=== PATIENT | female | born 1970 | race Caucasian/White ===

== ENCOUNTER 2023-05-30 05:26 | Inpatient (IN) | payer OTHER ==
[2023-05-30] MEDS ORDERED: LIDOCAINE 1%/EPI 1:100000 (20 ML MULTI DOSE VIAL) IJ ONE (06:09)
[2023-05-30] MEDS ORDERED: LIDOCAINE 1%/EPI 1:100000 (50 ML MULTI DOSE VIAL) ONE (06:11)
[2023-05-30] MEDS ORDERED: cefTRIAXone SODIUM 1 GM VIAL ONE (06:34)
[2023-05-30 07:07] LABS: POTASSIUM 4.3 mmol/L (3.5-5.1)
[2023-05-30 07:10] LABS: ALBUMIN 2.4 g/dl (3.4-5.0); CALCIUM 8.1 mg/dL (8.5-10.1)
[2023-05-30 07:11] LABS: BASO % 0.8 % (0-2.0); EOS % 2.1 % (0-4.5); HEMATOCRIT 32.5 % (32.4-45.2); INR 1.03 (0.83-1.09); LYMPH % 10.1 % (8-40); MCH 31.7 pg (25.7-33.7); MCHC 33.9 g/dl (32.0-36.0); MEAN CELL VOLUME 93.3 fl (80-96); MEAN PLT VOLUME 7.7 fl (7.5-11.1); MONO % 7.6 % (3.8-10.2); NEUT % 79.4 % (42.8-82.8); PLATELET COUNT 194 10^3/uL (134-434); RBC 3.48 M/mm3 (3.60-5.2); RDW 15.7 % (11.6-15.6); WHITE BLOOD COUNT 6.5 K/mm3 (4.0-10.0)
[2023-05-30 07:12] LABS: BILIRUBIN,DIRECT 0.7 mg/dL (0.0-0.2)
[2023-05-30 07:13] LABS: CREATININE 2.6 mg/dL (0.55-1.3)
[2023-05-30 07:14] LABS: ACTIVATED PTT 29.5 SECONDS (25.2-36.5)
[2023-05-30 07:18] LABS: N-TERMINAL BNP 4933.9 pg/ml (5-125)
[2023-05-30 08:49] LABS: BLOOD UREA NITROGEN 86.2 mg/dL (7-18)
[2023-05-30] MEDS ORDERED: ONDANSETRON *ODT* 4 MG TABLET SL PRN (11:08)
[2023-05-30] MEDS ORDERED: ACETAMINOPHEN 325 MG TABLET (FP) PO PRN (11:08)
[2023-05-30] MEDS ORDERED: FUROSEMIDE 40 MG/4 ML INJECTABLE VIAL ONE (11:25)
[2023-05-30] MEDS ORDERED: FOLIC ACID 1 MG TABLET (FP) ONE (11:28)
[2023-05-30] MEDS: FOLIC ACID 1 MG TABLET (FP) PO SCH (11:39)
[2023-05-30] MEDS: FUROSEMIDE 40 MG/4 ML INJECTABLE VIAL IVPUSH SCH (11:39)
[2023-05-30 16:56] VITALS: BMI 31.2
[2023-05-30] MEDS: chlordiazePOXIDE HCL 25 MG CAPSULE PO SCH ×2 (17:50→22:41)
[2023-05-30] MEDS: hydrALAZINE HCL 10 MG TABLET PO SCH (21:01)
[2023-05-30] MEDS: THIAMINE HCL 100 MG TABLET (FP) PO SCH (21:01)
[2023-05-31] MEDS: hydrALAZINE HCL 10 MG TABLET PO SCH ×3 (05:08→21:27)
[2023-05-31] MEDS: chlordiazePOXIDE HCL 25 MG CAPSULE PO SCH ×4 (05:08→23:09)
[2023-05-31 08:30] LABS: COCAINE, UR NEGATIVE (NEGATIVE); METHADONE, UR NEGATIVE (NEGATIVE); OPIATES, URI NEGATIVE (NEGATIVE); URINE AMPHETAMINES NEGATIVE (NEGATIVE); URINE BENZODIAZEPINES NEGATIVE (NEGATIVE)
[2023-05-31 08:32] LABS: PHENCYCLIDINE,URINE NEGATIVE (NEGATIVE)
[2023-05-31 08:42] LABS: URINE BARBITURATES NEGATIVE (NEGATIVE)
[2023-05-31 10:36] LABS: POTASSIUM 3.7 mmol/L (3.5-5.1)
[2023-05-31 10:39] LABS: ALBUMIN 2.4 g/dl (3.4-5.0); CALCIUM 8.2 mg/dL (8.5-10.1)
[2023-05-31 10:41] LABS: BLOOD UREA NITROGEN 84.2 mg/dL (7-18)
[2023-05-31 10:42] LABS: CREATININE 2.6 mg/dL (0.55-1.3)
[2023-05-31 10:45] LABS: TOT PROT 4.8 g/dl (6.4-8.2)
[2023-05-31 10:47] LABS: BILIRUBIN,TOTAL 1.6 mg/dL (0.2-1)
[2023-05-31] MEDS: THIAMINE HCL 100 MG TABLET (FP) PO SCH ×2 (11:03→21:27)
[2023-05-31] MEDS: FOLIC ACID 1 MG TABLET (FP) PO SCH (11:03)
[2023-05-31] MEDS: FUROSEMIDE 40 MG/4 ML INJECTABLE VIAL IVPUSH SCH (11:04)
[2023-05-31 12:33] LABS: BF WBC & OTHER NUCLEATED CELLS 237 /mm3
[2023-05-31] MEDS ORDERED: ALBUMIN HUMAN 25% 100 ML VIAL IV ONE (13:30)
[2023-05-31] MEDS: ALBUMIN HUMAN 25% 100 ML VIAL IV SCH ×3 (14:26→16:29)
[2023-06-01] MEDS: hydrALAZINE HCL 10 MG TABLET PO SCH ×3 (05:23→21:58)
[2023-06-01] MEDS: chlordiazePOXIDE HCL 25 MG CAPSULE PO SCH ×3 (05:23→16:46)
[2023-06-01] MEDS: THIAMINE HCL 100 MG TABLET (FP) PO SCH ×2 (09:18→21:58)
[2023-06-01] MEDS: FOLIC ACID 1 MG TABLET (FP) PO SCH (09:18)
[2023-06-02] MEDS: chlordiazePOXIDE HCL 25 MG CAPSULE PO SCH ×4 (00:18→16:39)
[2023-06-02] MEDS: hydrALAZINE HCL 10 MG TABLET PO SCH ×3 (05:27→21:42)
[2023-06-02] MEDS: FOLIC ACID 1 MG TABLET (FP) PO SCH (09:06)
[2023-06-02] MEDS: THIAMINE HCL 100 MG TABLET (FP) PO SCH ×2 (09:06→21:42)
[2023-06-03] MEDS: chlordiazePOXIDE HCL 25 MG CAPSULE PO SCH ×2 (01:20→06:11)
[2023-06-03] MEDS: hydrALAZINE HCL 10 MG TABLET PO SCH ×3 (06:14→22:07)
[2023-06-03 09:57] LABS: BASO % 0.7 % (0-2.0); EOS % 5.2 % (0-4.5); HEMATOCRIT 30.9 % (32.4-45.2); HEMOGLOBIN 10.2 GM/dL (10.7-15.3); LYMPH % 10.4 % (8-40); MCH 30.6 pg (25.7-33.7); MCHC 33.1 g/dl (32.0-36.0); MEAN CELL VOLUME 92.3 fl (80-96); MEAN PLT VOLUME 7.3 fl (7.5-11.1); MONO % 5.7 % (3.8-10.2); PLATELET COUNT 143 10^3/uL (134-434); RBC 3.35 M/mm3 (3.60-5.2); RDW 15.6 % (11.6-15.6); WHITE BLOOD COUNT 5.5 K/mm3 (4.0-10.0)
[2023-06-03] MEDS: FOLIC ACID 1 MG TABLET (FP) PO SCH (10:03)
[2023-06-03] MEDS: THIAMINE HCL 100 MG TABLET (FP) PO SCH ×2 (10:03→22:07)
[2023-06-03 10:35] LABS: POTASSIUM 3.5 mmol/L (3.5-5.1)
[2023-06-03 10:45] LABS: CALCIUM 8.1 mg/dL (8.5-10.1)
[2023-06-03 10:46] LABS: ALBUMIN 2.7 g/dl (3.4-5.0); BLOOD UREA NITROGEN 74.6 mg/dL (7-18); MAGNESIUM 1.9 mg/dL (1.8-2.4)
[2023-06-03 10:49] LABS: CREATININE 2.4 mg/dL (0.55-1.3)
[2023-06-03 10:51] LABS: TOT PROT 4.8 g/dl (6.4-8.2)
[2023-06-03 21:06] LABS: ANTIGLOMERULAR BASEMENT MEN.AB <0.2 units (0.0-0.9)
[2023-06-04] MEDS: hydrALAZINE HCL 10 MG TABLET PO SCH ×3 (05:54→21:45)
[2023-06-04] MEDS: THIAMINE HCL 100 MG TABLET (FP) PO SCH ×2 (09:55→21:45)
[2023-06-04] MEDS: FOLIC ACID 1 MG TABLET (FP) PO SCH (09:55)
[2023-06-04 10:19] LABS: BASO % 0.6 % (0-2.0); EOS % 6.7 % (0-4.5); HEMATOCRIT 29.9 % (32.4-45.2); HEMOGLOBIN 10.1 GM/dL (10.7-15.3); LYMPH % 11.2 % (8-40); MCH 31.1 pg (25.7-33.7); MCHC 33.8 g/dl (32.0-36.0); MEAN CELL VOLUME 91.8 fl (80-96); MEAN PLT VOLUME 7.6 fl (7.5-11.1); MONO % 5.6 % (3.8-10.2); NEUT % 75.9 % (42.8-82.8); PLATELET COUNT 152 10^3/uL (134-434); RBC 3.26 M/mm3 (3.60-5.2); RDW 15.7 % (11.6-15.6); WHITE BLOOD COUNT 6.4 K/mm3 (4.0-10.0)
[2023-06-04 10:40] LABS: POTASSIUM 3.5 mmol/L (3.5-5.1)
[2023-06-04 10:48] LABS: ALBUMIN 2.6 g/dl (3.4-5.0)
[2023-06-04 10:49] LABS: CREATININE 2.3 mg/dL (0.55-1.3); TOT PROT 4.8 g/dl (6.4-8.2)
[2023-06-04 10:57] LABS: CALCIUM 8.3 mg/dL (8.5-10.1)
[2023-06-04 16:10] LABS: ATYPICAL pANCA <1:20 titer (Neg:<1:20); C-ANCA <1:20 titer (Neg:<1:20)
[2023-06-04 18:11] LABS: BODY FLUID ALBUMIN <0.2 g/dL (Not Estab.)
[2023-06-05] MEDS: hydrALAZINE HCL 10 MG TABLET PO SCH ×3 (06:02→22:58)
[2023-06-05] MEDS: THIAMINE HCL 100 MG TABLET (FP) PO SCH ×2 (10:25→22:58)
[2023-06-05] MEDS: FOLIC ACID 1 MG TABLET (FP) PO SCH (10:25)
[2023-06-05] MEDS: SPIRONOLACTONE 25 MG TABLET PO SCH (14:07)
[2023-06-06] MEDS: hydrALAZINE HCL 10 MG TABLET PO SCH (07:00)
[2023-06-06] MEDS: THIAMINE HCL 100 MG TABLET (FP) PO SCH (10:37)
[2023-06-06] MEDS: FOLIC ACID 1 MG TABLET (FP) PO SCH (10:37)
[2023-06-06] MEDS ORDERED: SPIRONOLACTONE 25 MG TABLET PO SCH (10:42)
[2023-06-06] MEDS: SPIRONOLACTONE 25 MG TABLET PO SCH (11:23)
[2023-06-06 14:03] VITALS: BP 122/75; PULSE 103; RESP 17; TEMP 99.3
[2023-06-06] MEDS ORDERED: hydrALAZINE HCL 10 MG TABLET PO SCH (22:00)
== END 2023-06-06 17:22 | DRG 952 ==
LOC: JER 05:26 → JERBED 08:06 → J5S 16:18
PROVIDERS: ADMIT Family Medicine; ATTEND Family Medicine
PROC: HZ2ZZZZ Detoxification Services for Substance Abuse Treatment (ICD-10-PCS; 2023-05-30)
PROC: 0KQT0ZZ Repair Left Lower Leg Muscle, Open Approach (ICD-10-PCS; 2023-05-30)
PROC: 0W9G3ZZ Drainage of Peritoneal Cavity, Percutaneous Approach (ICD-10-PCS; principal; 2023-05-31)
DX: K70.31 Alcoholic cirrhosis of liver with ascites (principal); S81.812A Laceration without foreign body, left lower leg, initial encounter; R60.9 Edema, unspecified; R79.89 Other specified abnormal findings of blood chemistry; I27.20 Pulmonary hypertension, unspecified; F10.20 Alcohol dependence, uncomplicated; D64.9 Anemia, unspecified; I13.0 Hypertensive heart and chronic kidney disease with heart failure and stage 1 through stage 4 chronic kidney disease, or unspecified chronic kidney disease; N18.9 Chronic kidney disease, unspecified; I50.9 Heart failure, unspecified; W17.89XA Other fall from one level to another, initial encounter; Y92.098 Other place in other non-institutional residence as the place of occurrence of the external cause
CPT/HCPCS: 36415; 71045-TC-FY; 74181-TC; 76705-TC; 76942-TC; 80053; 80307; 82042; 82105; 82140; 82150; 82248; 82465; 82550; 82553; 82945; 82962; 82977; 83516; 83520; 83615; 83735; 83880; 84155; 84157; 84165; 84478; 84484; 85025; 85610; 85730; 86038; 86140; 86160; 86225; 86256; 86704; 86708; 86803; 87070; 87075; 87102; 87116; 87205; 87206; 87210; 87340; 87517; 87635; 88108; 88305-TC; 93005; 93010; 93306-TC; 93971-TC; 97116-GP; 97162-GP; 99285-25

== ENCOUNTER 2023-07-06 12:03 | Observation (INO) | payer OTHER ==
[2023-07-06 14:50] LABS: BASO % 0.5 % (0-2.0); EOS % 0.7 % (0-4.5); HEMATOCRIT 28.1 % (32.4-45.2); HEMOGLOBIN 9.2 GM/dL (10.7-15.3); LYMPH % 14.7 % (8-40); MCH 28.7 pg (25.7-33.7); MCHC 32.6 g/dl (32.0-36.0); MEAN CELL VOLUME 87.9 fl (80-96); MEAN PLT VOLUME 7.7 fl (7.5-11.1); MONO % 8.2 % (3.8-10.2); NEUT % 75.9 % (42.8-82.8); PLATELET COUNT 114 10^3/uL (134-434); RDW 15.6 % (11.6-15.6); WHITE BLOOD COUNT 4.6 K/mm3 (4.0-10.0)
[2023-07-06 14:55] LABS: INR 1.43 (0.83-1.09); PROTHROMBIN TIME (PATIENT) 16.5 SEC (9.7-13.0)
[2023-07-06 15:16] LABS: POTASSIUM 4.8 mmol/L (3.5-5.1)
[2023-07-06 15:18] LABS: ALBUMIN 3.2 g/dl (3.4-5.0); BLOOD UREA NITROGEN 42.6 mg/dL (7-18); CALCIUM 8.5 mg/dL (8.5-10.1)
[2023-07-06 15:22] LABS: CREATININE 2.5 mg/dL (0.55-1.3)
[2023-07-06 15:24] LABS: TOT PROT 5.9 g/dl (6.4-8.2)
[2023-07-06] MEDS ORDERED: LIDOCAINE HCL 1%, 10 MG/ML (50 mL VIAL) SQ ONE (17:34)
[2023-07-06] MEDS ORDERED: LIDOCAINE HCL 1%, 10 MG/ML (20ML VIAL) ONE (17:38)
[2023-07-06] MEDS ORDERED: ALBUTEROL SO4 HFA INHALER IH PRN (23:41)
[2023-07-07] MEDS: FUROSEMIDE 40 MG TABLET (FP) PO SCH (09:02)
[2023-07-07] MEDS: FOLIC ACID 1 MG TABLET (FP) PO SCH (09:02)
[2023-07-07] MEDS: THIAMINE HCL 100 MG TABLET (FP) PO SCH ×2 (09:02→21:20)
[2023-07-07] MEDS: hydrALAZINE HCL 10 MG TABLET PO SCH ×2 (09:03→21:20)
[2023-07-07 09:11] LABS: HEMOGLOBIN 8.1 GM/dL (10.7-15.3); MCH 27.7 pg (25.7-33.7); MCHC 32.5 g/dl (32.0-36.0); MEAN CELL VOLUME 85.3 fl (80-96); MEAN PLT VOLUME 8.2 fl (7.5-11.1); PLATELET COUNT 96 10^3/uL (134-434); RBC 2.92 M/mm3 (3.60-5.2); RDW 15.8 % (11.6-15.6); WHITE BLOOD COUNT 2.9 K/mm3 (4.0-10.0)
[2023-07-07 09:28] LABS: BLOOD UREA NITROGEN 43.9 mg/dL (7-18)
[2023-07-07 09:30] LABS: CREATININE 2.1 mg/dL (0.55-1.3)
[2023-07-07] MEDS ORDERED: hydrALAZINE HCL 10 MG TABLET PO SCH (10:00)
[2023-07-07] MEDS ORDERED: FUROSEMIDE 40 MG TABLET (FP) PO SCH (10:00)
[2023-07-07 10:17] LABS: ANISOCYTOSIS 1+; MACROCYTOSIS 0; OVALOCYTE 1+
[2023-07-07] MEDS: DEXTROSE 5%-0.45% SALINE 1,000 ML IV SCH (21:24)
[2023-07-08 09:41] LABS: HEMATOCRIT 23.9 % (32.4-45.2); HEMOGLOBIN 7.8 GM/dL (10.7-15.3); MCH 27.8 pg (25.7-33.7); MCHC 32.8 g/dl (32.0-36.0); MEAN CELL VOLUME 84.7 fl (80-96); MEAN PLT VOLUME 8.1 fl (7.5-11.1); PLATELET COUNT 96 10^3/uL (134-434); RBC 2.82 M/mm3 (3.60-5.2); RDW 15.7 % (11.6-15.6); WHITE BLOOD COUNT 2.8 K/mm3 (4.0-10.0)
[2023-07-08 10:00] LABS: POTASSIUM 3.8 mmol/L (3.5-5.1)
[2023-07-08 10:13] LABS: ALBUMIN 2.8 g/dl (3.4-5.0)
[2023-07-08 10:14] LABS: BLOOD UREA NITROGEN 41.2 mg/dL (7-18); CALCIUM 7.8 mg/dL (8.5-10.1)
[2023-07-08 10:16] LABS: CREATININE 1.9 mg/dL (0.55-1.3)
[2023-07-08 10:17] LABS: BILIRUBIN,TOTAL 1.6 mg/dL (0.2-1); TOT PROT 5.2 g/dl (6.4-8.2)
[2023-07-08] MEDS: DEXTROSE 5%-0.45% SALINE 1,000 ML IV SCH ×2 (10:40→21:16)
[2023-07-08] MEDS: hydrALAZINE HCL 10 MG TABLET PO SCH ×2 (10:43→21:15)
[2023-07-08] MEDS: FUROSEMIDE 40 MG TABLET (FP) PO SCH (10:43)
[2023-07-08] MEDS: THIAMINE HCL 100 MG TABLET (FP) PO SCH ×2 (10:43→21:15)
[2023-07-08] MEDS: FOLIC ACID 1 MG TABLET (FP) PO SCH (10:43)
[2023-07-08 11:19] LABS: ANISOCYTOSIS 0; MACROCYTOSIS 0
[2023-07-08 15:16] LABS: HEMATOCRIT 24.5 % (32.4-45.2); MCH 27.7 pg (25.7-33.7); MCHC 32.6 g/dl (32.0-36.0); MEAN PLT VOLUME 9.2 fl (7.5-11.1); PLATELET COUNT 123 10^3/uL (134-434); RBC 2.88 M/mm3 (3.60-5.2); RDW 15.8 % (11.6-15.6)
[2023-07-09] MEDS: LACTULOSE 20 GM/30 ML UDC (FOR ORAL USE ONLY) PO SCH (09:09)
[2023-07-09] MEDS: SPIRONOLACTONE 25 MG TABLET PO SCH (09:10)
[2023-07-09] MEDS: hydrALAZINE HCL 10 MG TABLET PO SCH ×2 (09:10→21:34)
[2023-07-09] MEDS: PANTOPRAZOLE 40 MG TABLET PO SCH ×2 (09:10→21:34)
[2023-07-09] MEDS: THIAMINE HCL 100 MG TABLET (FP) PO SCH ×2 (09:14→21:34)
[2023-07-09] MEDS: FOLIC ACID 1 MG TABLET (FP) PO SCH (09:14)
[2023-07-09] MEDS: FUROSEMIDE 40 MG TABLET (FP) PO SCH (09:14)
[2023-07-09] MEDS ORDERED: IRON SUCROSE INJECTION 200 MG in SODIUM CHLORIDE 90 ML IVPB ONE ×2 (09:30→11:15)
[2023-07-09 10:29] LABS: HEMATOCRIT 25.2 % (32.4-45.2); HEMOGLOBIN 8.1 GM/dL (10.7-15.3); MCH 27.6 pg (25.7-33.7); MCHC 32.2 g/dl (32.0-36.0); MEAN CELL VOLUME 85.7 fl (80-96); MEAN PLT VOLUME 8.3 fl (7.5-11.1); PLATELET COUNT 101 10^3/uL (134-434); RBC 2.94 M/mm3 (3.60-5.2); RDW 15.2 % (11.6-15.6)
[2023-07-09 10:54] LABS: POTASSIUM 3.6 mmol/L (3.5-5.1)
[2023-07-09] MEDS: DEXTROSE 5%-0.45% SALINE 1,000 ML IV SCH (10:57)
[2023-07-09 11:04] LABS: BLOOD UREA NITROGEN 39.3 mg/dL (7-18); CALCIUM 7.7 mg/dL (8.5-10.1)
[2023-07-09 11:10] LABS: CREATININE 1.8 mg/dL (0.55-1.3)
[2023-07-10] MEDS: DEXTROSE 5%-0.45% SALINE 1,000 ML IV SCH (06:28)
[2023-07-10] MEDS: LACTULOSE 20 GM/30 ML UDC (FOR ORAL USE ONLY) PO SCH (09:58)
[2023-07-10] MEDS: SPIRONOLACTONE 25 MG TABLET PO SCH (09:59)
[2023-07-10] MEDS: PANTOPRAZOLE 40 MG TABLET PO SCH ×2 (09:59→22:34)
[2023-07-10] MEDS: THIAMINE HCL 100 MG TABLET (FP) PO SCH ×2 (09:59→22:34)
[2023-07-10] MEDS: FUROSEMIDE 40 MG TABLET (FP) PO SCH (09:59)
[2023-07-10] MEDS: hydrALAZINE HCL 10 MG TABLET PO SCH ×2 (09:59→22:34)
[2023-07-10] MEDS: FOLIC ACID 1 MG TABLET (FP) PO SCH (09:59)
[2023-07-11] MEDS: hydrALAZINE HCL 10 MG TABLET PO SCH ×2 (09:46→21:31)
[2023-07-11] MEDS: THIAMINE HCL 100 MG TABLET (FP) PO SCH ×2 (09:47→21:31)
[2023-07-11] MEDS: PANTOPRAZOLE 40 MG TABLET PO SCH ×2 (09:47→21:31)
[2023-07-11] MEDS: FOLIC ACID 1 MG TABLET (FP) PO SCH (09:47)
[2023-07-11] MEDS: LACTULOSE 20 GM/30 ML UDC (FOR ORAL USE ONLY) PO SCH (09:47)
[2023-07-11] MEDS: FUROSEMIDE 40 MG TABLET (FP) PO SCH (09:47)
[2023-07-11] MEDS: SPIRONOLACTONE 25 MG TABLET PO SCH (09:47)
[2023-07-11] MEDS: BUDESONIDE/FORMETEROL FUMARATE 160/4.5 mcg INHALER IH SCH ×2 (09:51→21:32)
[2023-07-12] MEDS: THIAMINE HCL 100 MG TABLET (FP) PO SCH ×2 (09:54→22:32)
[2023-07-12] MEDS: hydrALAZINE HCL 10 MG TABLET PO SCH ×2 (09:54→22:32)
[2023-07-12] MEDS: LACTULOSE 20 GM/30 ML UDC (FOR ORAL USE ONLY) PO SCH (09:54)
[2023-07-12] MEDS: FOLIC ACID 1 MG TABLET (FP) PO SCH (09:54)
[2023-07-12] MEDS: BUDESONIDE/FORMETEROL FUMARATE 160/4.5 mcg INHALER IH SCH ×2 (09:54→22:32)
[2023-07-12] MEDS: SPIRONOLACTONE 25 MG TABLET PO SCH (09:54)
[2023-07-12] MEDS: PANTOPRAZOLE 40 MG TABLET PO SCH ×2 (09:54→22:32)
[2023-07-12] MEDS: FUROSEMIDE 40 MG TABLET (FP) PO SCH (09:54)
[2023-07-13] MEDS: SPIRONOLACTONE 25 MG TABLET PO SCH (09:57)
[2023-07-13] MEDS: PANTOPRAZOLE 40 MG TABLET PO SCH ×2 (09:58→21:39)
[2023-07-13] MEDS: FUROSEMIDE 40 MG TABLET (FP) PO SCH (09:58)
[2023-07-13] MEDS: FOLIC ACID 1 MG TABLET (FP) PO SCH (09:58)
[2023-07-13] MEDS: THIAMINE HCL 100 MG TABLET (FP) PO SCH ×2 (09:58→21:39)
[2023-07-13] MEDS: BUDESONIDE/FORMETEROL FUMARATE 160/4.5 mcg INHALER IH SCH ×2 (09:58→21:41)
[2023-07-13] MEDS: hydrALAZINE HCL 10 MG TABLET PO SCH ×2 (09:58→21:39)
[2023-07-13] MEDS: LACTULOSE 20 GM/30 ML UDC (FOR ORAL USE ONLY) PO SCH (09:59)
[2023-07-13 21:03] VITALS: BMI 30.4
[2023-07-14 08:19] LABS: POTASSIUM 3.4 mmol/L (3.5-5.1)
[2023-07-14 08:23] LABS: BLOOD UREA NITROGEN 41.6 mg/dL (7-18); CALCIUM 7.7 mg/dL (8.5-10.1)
[2023-07-14 08:26] LABS: CREATININE 1.8 mg/dL (0.55-1.3)
[2023-07-14] MEDS: hydrALAZINE HCL 10 MG TABLET PO SCH ×2 (09:24→22:29)
[2023-07-14] MEDS: MULTIVITAMINS (DAILY MVI) TABLET (FP) PO SCH (09:24)
[2023-07-14] MEDS: THIAMINE HCL 100 MG TABLET (FP) PO SCH ×2 (09:24→22:30)
[2023-07-14] MEDS: FOLIC ACID 1 MG TABLET (FP) PO SCH (09:24)
[2023-07-14] MEDS: SPIRONOLACTONE 25 MG TABLET PO SCH (09:24)
[2023-07-14] MEDS: PANTOPRAZOLE 40 MG TABLET PO SCH ×2 (09:24→22:30)
[2023-07-14] MEDS: FUROSEMIDE 40 MG TABLET (FP) PO SCH (09:24)
[2023-07-14] MEDS: LACTULOSE 20 GM/30 ML UDC (FOR ORAL USE ONLY) PO SCH (09:24)
[2023-07-14] MEDS: BUDESONIDE/FORMETEROL FUMARATE 160/4.5 mcg INHALER IH SCH ×2 (09:25→22:29)
[2023-07-14] MEDS: POTASSIUM CHLORIDE ORAL LIQUID 20 MEQ/15 ML PO ONE ×2 (15:06→16:03)
[2023-07-15] MEDS: LACTULOSE 20 GM/30 ML UDC (FOR ORAL USE ONLY) PO SCH ×2 (09:52→10:12)
[2023-07-15] MEDS: BUDESONIDE/FORMETEROL FUMARATE 160/4.5 mcg INHALER IH SCH ×2 (10:10→21:13)
[2023-07-15] MEDS: THIAMINE HCL 100 MG TABLET (FP) PO SCH ×2 (10:13→21:12)
[2023-07-15] MEDS: PANTOPRAZOLE 40 MG TABLET PO SCH ×2 (10:13→21:13)
[2023-07-15] MEDS: MULTIVITAMINS (DAILY MVI) TABLET (FP) PO SCH (10:13)
[2023-07-15] MEDS: FOLIC ACID 1 MG TABLET (FP) PO SCH (10:13)
[2023-07-15] MEDS: SPIRONOLACTONE 25 MG TABLET PO SCH (10:13)
[2023-07-15] MEDS: hydrALAZINE HCL 10 MG TABLET PO SCH ×2 (10:13→21:13)
[2023-07-15] MEDS: FUROSEMIDE 40 MG TABLET (FP) PO SCH (10:13)
[2023-07-16 06:24] VITALS: RESP 18
[2023-07-16] MEDS: PANTOPRAZOLE 40 MG TABLET PO SCH (09:52)
[2023-07-16] MEDS: MULTIVITAMINS (DAILY MVI) TABLET (FP) PO SCH (09:52)
[2023-07-16] MEDS: LACTULOSE 20 GM/30 ML UDC (FOR ORAL USE ONLY) PO SCH ×2 (09:52→09:54)
[2023-07-16] MEDS: THIAMINE HCL 100 MG TABLET (FP) PO SCH (09:53)
[2023-07-16] MEDS: FOLIC ACID 1 MG TABLET (FP) PO SCH (09:53)
[2023-07-16] MEDS: hydrALAZINE HCL 10 MG TABLET PO SCH (09:53)
[2023-07-16] MEDS: SPIRONOLACTONE 25 MG TABLET PO SCH (09:53)
[2023-07-16] MEDS: FUROSEMIDE 40 MG TABLET (FP) PO SCH (09:53)
[2023-07-16] MEDS: BUDESONIDE/FORMETEROL FUMARATE 160/4.5 mcg INHALER IH SCH (09:54)
[2023-07-16] MEDS ORDERED: IRON SUCROSE INJECTION 200 MG in SODIUM CHLORIDE 90 ML IVPB ONE (11:00)
[2023-07-16 14:04] VITALS: BP 147/76; PULSE 88; TEMP 98.9
== END 2023-07-16 14:10 ==
LOC: JER 12:03 → JERBED 19:05 → J5S 23:51
PROVIDERS: ADMIT Family Medicine; ATTEND Family Medicine
PROC: 3E033GC Introduction of Other Therapeutic Substance into Peripheral Vein, Percutaneous Approach (ICD-10-PCS; principal; 2023-07-06)
PROC: 3E0337Z Introduction of Electrolytic and Water Balance Substance into Peripheral Vein, Percutaneous Approach (ICD-10-PCS; 2023-07-06)
PROC: 3E023NZ Introduction of Analgesics, Hypnotics, Sedatives into Muscle, Percutaneous Approach (ICD-10-PCS; 2023-07-06)
PROC: 0PSJ35Z Reposition Left Radius with External Fixation Device, Percutaneous Approach (ICD-10-PCS; 2023-07-06)
DX: S52.612A Displaced fracture of left ulna styloid process, initial encounter for closed fracture (principal); S52.532A Colles' fracture of left radius, initial encounter for closed fracture; D61.818 Other pancytopenia; N17.9 Acute kidney failure, unspecified; I50.9 Heart failure, unspecified; I11.0 Hypertensive heart disease with heart failure; K74.60 Unspecified cirrhosis of liver; D64.9 Anemia, unspecified; W08.XXXA Fall from other furniture, initial encounter; Y93.89 Activity, other specified; Y92.008 Other place in unspecified non-institutional (private) residence as the place of occurrence of the external cause; R79.89 Other specified abnormal findings of blood chemistry
CPT/HCPCS: 25605; 36415; 70450-TC; 71045-TC-FY; 71046-TC-FY; 72125-TC; 73110-TC-LT-FY; 73130-TC-LT-FY; 73521-TC-FY; 73610-TC-LT-FY; 73630-TC-LT; 76700-TC; 80048; 80053; 82728; 82962; 83540; 83550; 84466; 85025; 85027; 85045; 85610; 85730; 86850; 86900; 86901; 87635; 93005; 93010; 96361; 96365; 96366; 96372; 96375; 96376; 97116-GP; 97162-GP; 99285-25; G0378; J1756